=== PATIENT | male | born 1965 | race Two or more races ===

== ENCOUNTER 2020-02-23 02:27 | Inpatient (IN) | payer MEDICAID, OTHER ==
[~2020-02-23] VITALS: Ht 177.8 cm; Wt 89.0 kg
[2020-02-23] MEDS ORDERED: LORazepam 2 MG/ML, 1ML ONE (02:29)
[2020-02-23] MEDS ORDERED: CEFTRIAXONE PMX 1GM/50ML 50 ML ONE (02:39)
[2020-02-23] MEDS ORDERED: ACETAMINOPHEN 500 MG TABLET ONE (02:40)
[2020-02-23] MEDS ORDERED: ONDANSETRON 2MG/ML, 2ML ONE (02:41)
[2020-02-23] MEDS ORDERED: ONDANSETRON 2MG/ML, 2ML IV ONE (03:00)
[2020-02-23] MEDS ORDERED: CEFTRIAXONE PMX 1GM/50ML 50 ML IVPB ONE (03:00)
[2020-02-23] MEDS ORDERED: SODIUM CHLORIDE 0.9% 1,000ML IVBOLUS ONE (03:00)
[2020-02-23] MEDS ORDERED: ACETAMINOPHEN 500 MG TABLET PO ONE (03:00)
[2020-02-23] MEDS: PLEASE ENTER ALLERGIES MC SCH ×2 (03:00→03:49)
[2020-02-23] MEDS ORDERED: AZITHROMYCIN 500 MG in SODIUM CHLORIDE 0.9% 250 ML IVPB ONE (03:00)
[2020-02-23 03:11] LABS: BASOPHILS # (AUTO) 0.02 x10^3/uL (0-0.1); BASOPHILS % (AUTO) 0 % (0-1); EOSINOPHILS # (AUTO) 0.05 x10^3/uL (0-0.4); EOSINOPHILS % (AUTO) 1 % (1-7); LYMPHOCYTES # (AUTO) 0.42 x10^3/uL (1-3.4); LYMPHOCYTES % (AUTO) 5 % (22-44); MD NO; MEAN CORPUSCULAR HEMOGLOBIN 35.4 pg (27.5-34.5); MEAN CORPUSCULAR HGB CONC 33.9 g/dL (33.2-36.2); MEAN CORPUSCULAR VOLUME 104.7 fL (81-97); MEAN PLATELET VOLUME 7.2 fL (7.4-10.4); MONOCYTES # (AUTO) 0.98 x10^3/uL (0.2-0.8); MONOCYTES % (AUTO) 11 % (2-9); NEUTROPHILS # (AUTO) 7.44 x10^3/uL (1.8-6.8); NEUTROPHILS % (AUTO) 83 % (42-75); PLATELET COUNT 144 x10^3/uL (130-400); RED BLOOD COUNT 3.58 x10^6/uL (4.38-5.82); RED CELL DISTRIBUTION WIDTH 13.9 % (9.4-14.8)
--- NOTE | 2020-02-23 03:13 | NUR ---
Pt bib ems c/o c/o fever, n/v/d, abdominal pain and fatigue for multiple days. Pt recently stopped binge drinking, as well. Pt A&Ox4 during triage, respirations labored, wet cough and continuous vomitting during exam. Pt medicated per emar, blood cultures and additional labs collected, swabs sent to lab. Pt resting upon leaving the room.
[2020-02-23 03:22] LABS: ALANINE AMINOTRANSFERASE 22 U/L (12-78); ALBUMIN 2.7 g/dL (3.4-5.0); ANION GAP 9 mmol/L (5-15); CALCIUM 7.5 mg/dL (8.5-10.1); CHLORIDE 102 mmol/L (98-107); CREATININE 0.84 mg/dL (0.7-1.3)
[2020-02-23 03:26] LABS: ALKALINE PHOSPHATASE 116 U/L (45-117); BILIRUBIN,TOTAL 0.6 mg/dL (0.2-1.0); TOTAL PROTEIN 7.4 g/dL (6.4-8.2); TROPONIN I < 0.015 ng/mL (0.000-0.045)
[2020-02-23] MEDS ORDERED: LORazepam 2 MG/ML, 1ML IVPush ONE (03:30)
[2020-02-23 03:57] LABS: RAPID INFLUENZA A Negative (Negative); RAPID INFLUENZA B Negative (Negative)
[2020-02-23] MEDS ORDERED: POTASSIUM CHLORIDE 20 MEQ TAB.ER.PRT ONE (03:57)
[2020-02-23] MEDS: ENOXAPARIN 40 MG/0.4 ML SQ SCH (04:00)
[2020-02-23] MEDS ORDERED: CHLORDIAZEPOXIDE 10 MG CAPSULE PO PRN (04:00)
[2020-02-23] MEDS: POTASSIUM CHLORIDE 20 MEQ, MAGNESIUM SULFATE 2 GM, THIAMINE 200 MG, MVI ADULT 10 ML, FO... IV SCH ×2 (04:00→14:52)
[2020-02-23] MEDS ORDERED: ONDANSETRON 2MG/ML, 2ML IVPush PRN (04:00)
[2020-02-23] MEDS ORDERED: CHLORDIAZEPOXIDE 25 MG CAPSULE PO SCH (04:00)
[2020-02-23] MEDS: CEFTRIAXONE PMX 2GM/50ML 50 ML IV SCH (04:00)
[2020-02-23] MEDS ORDERED: LORazepam 2 MG/ML, 1ML IV PRN (04:00)
[2020-02-23] MEDS ORDERED: POTASSIUM CHLORIDE 20 MEQ TAB.ER.PRT PO ONE (04:00)
[2020-02-23] MEDS ORDERED: LABETALOL 5MG/ML, 20ML IVPush PRN (04:00)
[2020-02-23] MEDS ORDERED: CHLORDIAZEPOXIDE 25 MG CAPSULE PO PRN ×4 (04:00→08:00)
[2020-02-23] MEDS ORDERED: morphine SULFATE 10 MG/ML, 1ML IVPush PRN (04:00)
[2020-02-23] MEDS: AZITHROMYCIN 500 MG in SODIUM CHLORIDE 0.9% 250 ML IV SCH (04:00)
--- NOTE | 2020-02-23 05:02 | NUR ---
Med requested from pharmacy.
--- NOTE | 2020-02-23 05:38 | NUR ---
Pt resting in bed at this time. Pt medicated per emar. Resp even and unlabored, tachycardia resolved at this time. Will continue to monitor
--- NOTE | 2020-02-23 07:00 | NUR ---
REPORT FROM RONNIE TORRES WITH ASSESSMENT PATIENT: DIAPHORETIC/TREMULOUS. REQUIRING 3-4L NC TO MEDICATE FOR WITHDRAWAL PROVIDED WITH BREAKFAST
[2020-02-23] MEDS ORDERED: CHLORDIAZEPOXIDE 25 MG CAPSULE ONE ×2 (07:43→11:21)
[2020-02-23] MEDS: CHLORDIAZEPOXIDE 25 MG CAPSULE PO SCH ×4 (07:45→20:59)
--- NOTE | 2020-02-23 12:39 | NUR ---
HOSPITALIST PAGED TO CLARIFY ABX ORDERS (Q24 ABX ENOUGH FOR BILATERAL PNA?) NO ANSWER- LEFT VOICEMAIL ON PROVIDER'S PHONE
[2020-02-23 13:12] VITALS: BP 118/82
[2020-02-23] MEDS: ACETAMINOPHEN 325 MG TABLET PO PRN (14:07)
[2020-02-23] MEDS ORDERED: LORazepam INTENSOL 2 MG/ML PO PRN (16:30)
[2020-02-23] MEDS ORDERED: POTASSIUM CHLORIDE 20 MEQ in SODIUM CHLORIDE 0.9% 250 ML IV ONE (16:30)
[2020-02-23] MEDS ORDERED: MAGNESIUM SULFATE PMX 2GM/50ML 50 ML IV ONE (16:30)
[2020-02-23 21:16] VITALS: BP 115/71
[2020-02-24 02:50] VITALS: BP 122/78
[2020-02-24] MEDS: POTASSIUM CHLORIDE 20 MEQ, MAGNESIUM SULFATE 2 GM, THIAMINE 200 MG, MVI ADULT 10 ML, FO... IV SCH ×3 (03:30→21:04)
[2020-02-24] MEDS: CEFTRIAXONE PMX 2GM/50ML 50 ML IV SCH (03:54)
[2020-02-24] MEDS: ENOXAPARIN 40 MG/0.4 ML SQ SCH (03:55)
[2020-02-24] MEDS: AZITHROMYCIN 500 MG in SODIUM CHLORIDE 0.9% 250 ML IV SCH (05:06)
[2020-02-24 06:16] LABS: BASOPHILS # (AUTO) 0.06 x10^3/uL (0-0.1); BASOPHILS % (AUTO) 1 % (0-1); EOSINOPHILS # (AUTO) 0.32 x10^3/uL (0-0.4); EOSINOPHILS % (AUTO) 3 % (1-7); LYMPHOCYTES # (AUTO) 0.69 x10^3/uL (1-3.4); LYMPHOCYTES % (AUTO) 7 % (22-44); MD NO; MEAN CORPUSCULAR HEMOGLOBIN 35.5 pg (27.5-34.5); MEAN CORPUSCULAR HGB CONC 33.6 g/dL (33.2-36.2); MEAN CORPUSCULAR VOLUME 105.8 fL (81-97); MEAN PLATELET VOLUME 7.2 fL (7.4-10.4); MONOCYTES # (AUTO) 0.72 x10^3/uL (0.2-0.8); MONOCYTES % (AUTO) 7 % (2-9); NEUTROPHILS # (AUTO) 8.28 x10^3/uL (1.8-6.8); NEUTROPHILS % (AUTO) 82 % (42-75); PLATELET COUNT 165 x10^3/uL (130-400); RED BLOOD COUNT 3.49 x10^6/uL (4.38-5.82); RED CELL DISTRIBUTION WIDTH 13.9 % (9.4-14.8)
[2020-02-24 06:23] LABS: ANION GAP 6 mmol/L (5-15); CALCIUM 7.4 mg/dL (8.5-10.1); CHLORIDE 106 mmol/L (98-107); CREATININE 0.64 mg/dL (0.7-1.3)
[2020-02-24 08:00] VITALS: BP 123/80
[2020-02-24] MEDS ORDERED: POTASSIUM CHLORIDE 40 MEQ in SODIUM CHLORIDE 0.9% 500 ML IV ONE (08:00)
[2020-02-24] MEDS ORDERED: LORazepam INTENSOL 2 MG/ML PO SCH (08:00)
[2020-02-24] MEDS ORDERED: LORazepam 0.5MG TABLET PO SCH (09:00)
[2020-02-24 12:21] VITALS: BP 127/87
[2020-02-24] MEDS: LORazepam 0.5MG TABLET PO SCH ×2 (17:06→21:15)
[2020-02-24 20:12] VITALS: BP 142/87
[2020-02-25 01:50] VITALS: BP 140/88
[2020-02-25] MEDS: CEFTRIAXONE PMX 2GM/50ML 50 ML IV SCH (03:56)
[2020-02-25] MEDS: ENOXAPARIN 40 MG/0.4 ML SQ SCH (03:56)
[2020-02-25] MEDS: AZITHROMYCIN 500 MG in SODIUM CHLORIDE 0.9% 250 ML IV SCH (05:00)
[2020-02-25 06:14] LABS: ANION GAP 7 mmol/L (5-15); CALCIUM 7.9 mg/dL (8.5-10.1); CHLORIDE 104 mmol/L (98-107); CREATININE 0.69 mg/dL (0.7-1.3)
[2020-02-25] MEDS: POTASSIUM CHLORIDE 20 MEQ, MAGNESIUM SULFATE 2 GM, THIAMINE 200 MG, MVI ADULT 10 ML, FO... IV SCH (07:20)
[2020-02-25 07:29] VITALS: BP 131/87
[2020-02-25] MEDS: LORazepam 0.5MG TABLET PO SCH ×3 (08:10→20:42)
[2020-02-25 14:08] VITALS: BP 131/91
[2020-02-25] MEDS ORDERED: POTASSIUM CHLORIDE 20 MEQ TAB.ER.PRT PO ONE (16:15)
[2020-02-25 21:17] VITALS: BP 150/91
[2020-02-26 01:23] VITALS: BP 113/75
[2020-02-26] MEDS: ENOXAPARIN 40 MG/0.4 ML SQ SCH (04:36)
[2020-02-26] MEDS: CEFTRIAXONE PMX 2GM/50ML 50 ML IV SCH (04:36)
[2020-02-26] MEDS: AZITHROMYCIN 500 MG in SODIUM CHLORIDE 0.9% 250 ML IV SCH (05:16)
[2020-02-26] MEDS: POTASSIUM CHLORIDE 20 MEQ, MAGNESIUM SULFATE 2 GM, THIAMINE 200 MG, MVI ADULT 10 ML, FO... IV SCH (05:16)
[2020-02-26 07:39] VITALS: BP 138/92
[2020-02-26] MEDS: FOLIC ACID 1 MG TABLET PO SCH (08:41)
[2020-02-26] MEDS: MULTIVITAMIN 1 TABLET PO SCH (08:41)
[2020-02-26] MEDS: THIAMINE 100MG TABLET PO SCH (08:41)
[2020-02-26] MEDS: LORazepam 0.5MG TABLET PO SCH ×3 (08:42→21:18)
[2020-02-26 12:53] VITALS: BP 112/97
[2020-02-26 19:49] VITALS: BP 116/75
[2020-02-27 01:40] VITALS: BP 123/84
[2020-02-27] MEDS: ENOXAPARIN 40 MG/0.4 ML SQ SCH (04:14)
[2020-02-27] MEDS: CEFTRIAXONE PMX 2GM/50ML 50 ML IV SCH (04:14)
[2020-02-27] MEDS: ACETAMINOPHEN 325 MG TABLET PO PRN (04:28)
[2020-02-27] MEDS: AZITHROMYCIN 500 MG in SODIUM CHLORIDE 0.9% 250 ML IV SCH (05:18)
[2020-02-27 05:53] LABS: ANION GAP 8 mmol/L (5-15); CALCIUM 7.9 mg/dL (8.5-10.1); CHLORIDE 107 mmol/L (98-107); CREATININE 0.75 mg/dL (0.7-1.3)
[2020-02-27 06:02] LABS: BASOPHILS # (AUTO) 0.08 x10^3/uL (0-0.1); BASOPHILS % (AUTO) 1 % (0-1); EOSINOPHILS # (AUTO) 0.23 x10^3/uL (0-0.4); EOSINOPHILS % (AUTO) 3 % (1-7); LYMPHOCYTES # (AUTO) 1.02 x10^3/uL (1-3.4); LYMPHOCYTES % (AUTO) 12 % (22-44); MD NO; MEAN CORPUSCULAR HEMOGLOBIN 35.5 pg (27.5-34.5); MEAN CORPUSCULAR HGB CONC 33.7 g/dL (33.2-36.2); MEAN CORPUSCULAR VOLUME 105.3 fL (81-97); MEAN PLATELET VOLUME 7.1 fL (7.4-10.4); MONOCYTES # (AUTO) 0.93 x10^3/uL (0.2-0.8); MONOCYTES % (AUTO) 11 % (2-9); NEUTROPHILS # (AUTO) 6.01 x10^3/uL (1.8-6.8); NEUTROPHILS % (AUTO) 73 % (42-75); PLATELET COUNT 311 x10^3/uL (130-400); RED BLOOD COUNT 3.91 x10^6/uL (4.38-5.82); RED CELL DISTRIBUTION WIDTH 13.6 % (9.4-14.8)
[2020-02-27 07:04] VITALS: BP 128/86
[2020-02-27] MEDS: MULTIVITAMIN 1 TABLET PO SCH (09:42)
[2020-02-27] MEDS: THIAMINE 100MG TABLET PO SCH (09:42)
[2020-02-27] MEDS: FOLIC ACID 1 MG TABLET PO SCH (09:42)
[2020-02-27] MEDS: LORazepam 0.5MG TABLET PO SCH ×3 (09:42→21:05)
[2020-02-27] MEDS: POTASSIUM CHLORIDE 20 MEQ, MAGNESIUM SULFATE 2 GM, THIAMINE 200 MG, MVI ADULT 10 ML, FO... IV SCH (09:42)
[2020-02-27 12:27] VITALS: BP 123/86
[2020-02-27 20:30] VITALS: BP 104/68
[2020-02-28 01:50] VITALS: BP 117/71
[2020-02-28] MEDS: ENOXAPARIN 40 MG/0.4 ML SQ SCH (03:31)
[2020-02-28] MEDS: CEFTRIAXONE PMX 2GM/50ML 50 ML IV SCH (03:31)
[2020-02-28] MEDS: AZITHROMYCIN 500 MG in SODIUM CHLORIDE 0.9% 250 ML IV SCH (04:36)
[2020-02-28 05:33] LABS: BASOPHILS # (AUTO) 0.06 x10^3/uL (0-0.1); BASOPHILS % (AUTO) 1 % (0-1); EOSINOPHILS % (AUTO) 2 % (1-7); LYMPHOCYTES # (AUTO) 1.11 x10^3/uL (1-3.4); LYMPHOCYTES % (AUTO) 14 % (22-44); MD NO; MEAN CORPUSCULAR HEMOGLOBIN 35.9 pg (27.5-34.5); MEAN CORPUSCULAR HGB CONC 33.8 g/dL (33.2-36.2); MEAN CORPUSCULAR VOLUME 106.2 fL (81-97); MEAN PLATELET VOLUME 6.9 fL (7.4-10.4); MONOCYTES # (AUTO) 0.79 x10^3/uL (0.2-0.8); MONOCYTES % (AUTO) 10 % (2-9); NEUTROPHILS # (AUTO) 6.03 x10^3/uL (1.8-6.8); NEUTROPHILS % (AUTO) 74 % (42-75); PLATELET COUNT 355 x10^3/uL (130-400); RED BLOOD COUNT 3.84 x10^6/uL (4.38-5.82); RED CELL DISTRIBUTION WIDTH 13.7 % (9.4-14.8)
[2020-02-28 05:44] LABS: ALBUMIN 2.4 g/dL (3.4-5.0); ANION GAP 7 mmol/L (5-15); CALCIUM 8.6 mg/dL (8.5-10.1); CHLORIDE 109 mmol/L (98-107); CREATININE 0.75 mg/dL (0.7-1.3)
[2020-02-28 05:47] LABS: ALANINE AMINOTRANSFERASE 52 U/L (12-78); ALKALINE PHOSPHATASE 112 U/L (45-117); BILIRUBIN,TOTAL 0.3 mg/dL (0.2-1.0)
[2020-02-28 06:30] VITALS: BP 130/85
[2020-02-28] MEDS: THIAMINE 100MG TABLET PO SCH (08:36)
[2020-02-28] MEDS: FOLIC ACID 1 MG TABLET PO SCH (08:36)
[2020-02-28] MEDS: LORazepam 0.5MG TABLET PO SCH (08:36)
[2020-02-28] MEDS: MULTIVITAMIN 1 TABLET PO SCH (08:36)
[2020-02-28] MEDS: POTASSIUM CHLORIDE 20 MEQ, MAGNESIUM SULFATE 2 GM, THIAMINE 200 MG, MVI ADULT 10 ML, FO... IV SCH (10:09)
[2020-02-28 12:10] VITALS: BP 115/75
[2020-02-28] MEDS ORDERED: FOLI-17 PO (13:04)
[2020-02-28] MEDS ORDERED: MULT1TAB60 PO (13:04)
[2020-02-28] MEDS ORDERED: CEFD300C37 PO (13:04)
[2020-02-28] MEDS ORDERED: THIA100T67 PO (13:04)
== END 2020-02-28 14:30 | disposition home or self-care (01) | DRG 871 ==
LOC: ED 03:23 → EDIP 03:50 → 4NE 13:06 → 4EST 02-25 19:09 → DCLOUNGE 02-28 14:16
PROVIDERS: ADMIT Family Medicine; ATTEND Hospitalist
DX: A41.9 Sepsis, unspecified organism (principal); J18.1 Lobar pneumonia, unspecified organism; J96.01 Acute respiratory failure with hypoxia; F10.239 Alcohol dependence with withdrawal, unspecified; D50.9 Iron deficiency anemia, unspecified; D53.9 Nutritional anemia, unspecified; E83.42 Hypomagnesemia; E87.6 Hypokalemia; R73.9 Hyperglycemia, unspecified; Z03.818 Encounter for observation for suspected exposure to other biological agents ruled out; Z59.0 Homelessness; Z83.3 Family history of diabetes mellitus
CPT/HCPCS: 36415; 87400; 96365; 96368; 96375; 99291; J7042; 71045; 80048; 80053; 83036; 83605; 83735; 84100; 84484; 85025; 87040; 87070; 87205; 93005; G0378; J0456; J0696; J1650; J2405; J3411; J3475; J3480; J2060; J7030; J7040; J7050; U0001-CS